=== PATIENT | male | born 1980 ===

== ENCOUNTER 2025-03-16 07:00 | Day surgery (SDC) | payer OTHER ==
[2025-03-09 08:32] VITALS: BP 129/83
[2025-03-09 08:45] LABS: URINE APPEARANCE Clear; URINE BILIRRUBIN Negative (NEGATIVE); URINE BLOOD Negative; URINE COLOR Yellow; URINE GLUCOSE Negative (NEGATIVE); URINE KETONE Trace (NEGATIVE); URINE LEUKOCYTE Negative; URINE NITRATE Negative; URINE PROTEIN Negative (NEGATIVE); URINE UROBILINOGEN 0.2 E.U./dl
[2025-03-09 08:47] LABS: BASO % 0.5 % (0.1-1.2); EOS # 0.05 (0.04-0.54); EOS % 0.8 % (0.7-7.0); LYMPH # 1.69 (1.18-3.74); LYMPH % 26.0 % (19.3-53.1); MEAN PLATELET VOLUME 10.70 fl (9.4-12.4); MONO # 0.45 (0.24-0.82); MONO % 6.9 % (4.7-12.5); NEUT # 4.28 (1.56-6.13); NEUT % 65.6 % (34.0-71.1); RED CELL DISTRIBUTION WIDTH 12.2 % (11.6-14.4)
[2025-03-09 08:49] LABS: URINE BACTERIA 17.9 uL (0.0-1933); URINE EPITHELIAL CELLS 4.4 uL (0.0-38.8); URINE RBC 2.6 uL (0.0-20.8); URINE WBC 7.6 uL (0.0-23.2)
[2025-03-09 09:00] LABS: URINE CAST 0.00 uL (0.0-1.40)
[2025-03-09 09:07] LABS: INR 1.0
[2025-03-09 09:10] LABS: ALT/SGPT 34.0 U/L (12-78); AST/SGOT 20.0 U/L (15-37); BILIRUBIN TOTAL 0.63 mg/dL (0.3-1.2); BUN CREA RATIO 19.0 (7.0-25.0); CREATININE SERUM 0.96 mg/dL (0.70-1.30); GFR 85.09; GLOBULINA 4.0 G/DL (2.4-3.5); GLUCOSE FASTING 114.0 mg/dL (65-100); OSMOLALITY SERUM 288.0 MOSM/KG (275-295)
[~2025-03-16] VITALS: Ht 167.6 cm; Wt 86.2 kg
[~2025-03-16 07:00] MED LIST: IRBESARTAN-HCT1 EACH PO; NORVASC5 MG PO; TOPROL XL50 M1 PO
[2025-03-16] MEDS ORDERED: CEFAZOLIN SODIUM 1,000 MG VIAL ONE (08:04)
[2025-03-16] MEDS ORDERED: MORPHINE SULFATE 4 MG/ML VIAL IV ONE (12:25)
== END 2025-03-16 14:45 | disposition home or self-care (01) ==
LOC: CIR.AMB 07:00
PROVIDERS: ATTEND Surgery
DX: K81.1 Chronic cholecystitis (principal)